=== PATIENT | male | born 1945 ===

== ENCOUNTER → 2023-12-24 | Outpatient (CLI) | payer MEDICARE, OTHER ==
[~2023-12-24] VITALS: Ht 190.5 cm; Wt 93.0 kg
[~2023-12-24] MED LIST: BUDE10.7 IH
[2023-12-24 10:28] VITALS: BP 128/70; PULSE 62; RESP 15; TEMP 97.8; O2SAT 87
== END | disposition home or self-care (01) ==
LOC: SRCNTR 10:12
PROVIDERS: ATTEND Internal Medicine
DX: J96.10 Chronic respiratory failure, unspecified whether with hypoxia or hypercapnia (principal); J44.1 Chronic obstructive pulmonary disease with (acute) exacerbation; Z79.899 Other long term (current) drug therapy; Z88.8 Allergy status to other drugs, medicaments and biological substances; Z98.890 Other specified postprocedural states
CPT/HCPCS: G0463; Z7500